=== PATIENT | male | born 1945 | race Caucasian/White ===

== ENCOUNTER → 2018-02-17 | Outpatient (CLI) | payer MEDICARE, OTHER ==
--- NOTE | 2018-02-24 10:18 | RSPPFT ---
DATE OF PROCEDURE: 02/17/18 COMMENTS: Spirometry shows FVC of 2.7 at 58% of predicted, FEV1 of 2.0 at 56%, FEV1/FVC ratio is decreased. Flow is decreased at FEF 25, FEF 50, FEF 75 and FEF 25-75. There is no response after bronchodilator treatment. Lung volumes show residual volume is normal. TLC is decreased. Diffusion capacity is normal. Flow volume loop indicates an obstructive pattern. IMPRESSION: 1. Mild obstructive lung disease. 2. Additional mild restrictive lung disease. 3. No response after bronchodilator treatment. 4. Total lung capacity is decreased. 5. Diffusion capacity is normal.
== END ==
LOC: PHRSP 09:12
PROVIDERS: ATTEND Specialist
DX: J44.9 Chronic obstructive pulmonary disease, unspecified (principal)
CPT/HCPCS: 36600; 82805; 94060; 94618; 94726; 94729